=== PATIENT | male | born 1960 | race Caucasian/White ===

== ENCOUNTER 2017-11-13 01:00 | Emergency (ER) | END 2017-11-13 01:10 | disposition left against medical advice (07) | LOC: ER 01:00 | DX: Z53.21 Procedure and treatment not carried out due to patient leaving prior to being seen by health care provider (principal) ==

== ENCOUNTER 2018-03-09 01:14 | Emergency (ER) | payer MEDICARE, MEDICAID ==
--- NOTE | 2018-03-09 01:56 | ER Document Report ---
ED General - General Chief Complaint: Head Injury with LOC Stated Complaint: FALL/HEAD LACERATION Time Seen by Provider: 03/09/18 01:36 Notes: Patient is a 57-year old male with a past history of coronary artery disease, has had four-vessel bypass in the past as well as multiple stent placements who presents after a mechanical trip and fall while walking up the steps. The patient is quite agitated, guarded on history taking. His at the bedside does state that he had been drinking tonight, but it looks like he tripped and fell up the stairs striking his head on the side of a wall. He did lose consciousness. Since that time he has been acting like his normal self per the patient's . He has not had any vomiting, focal weakness or numbness. No confusion. He does take clopidogrel. He does not regularly follow with a primary care physician. The patient does relate that he has been having episodes over the last 6-12 months where he "blacks out". He is unwilling to provide additional information stating that is not why he is here tonight and that he does not feel like he should be in the hospital at all. He is quite agitated with his will bring him here to the emergency department. TRAVEL OUTSIDE OF THE [place] IN LAST 30 DAYS: No - Related Data Allergies/Adverse Reactions: aspirin [From Percodan] Allergy (Verified 11/13/17 01:07) morphine Allergy (Verified 11/13/17 01:07) oxycodone [From Percodan] Allergy (Verified 11/13/17 01:07) Past Medical History - General Information source: Patient - Social History Smoking Status: Current Every Day Smoker Frequency of alcohol use: Heavy Drug Abuse: None Lives with: Parents Family History: Reviewed & Not Pertinent Review of Systems - Review of Systems Notes: Constitutional: Negative for fever. Eyes: Negative for visual changes. ENT: Negative for facial injury Cardiovascular: Negative for chest injury. Respiratory: Negative for shortness of breath. Gastrointestinal: Negative for abdominal injury. Genitourinary: Negative for genital injury Musculoskeletal: Negative for back injury. Skin: Positive for laceration/abrasions. Neurological: Positive for head injury. Physical Exam - Vital signs Vitals: Temp Pulse Resp BP Pulse Ox 97.6 F 77 22 H 95/66 L 93 03/09/18 01:21 03/09/18 01:21 03/09/18 01:21 03/09/18 01:21 03/09/18 01:21 Interpretation: Normal Notes: PHYSICAL EXAMINATION: GENERAL: Well-appearing, no acute distress. HEAD: Subcutaneous hematoma and abrasion over the left forehead EYES: Pupils equal round and reactive to light, extraocular movements intact, sclera anicteric, conjunctiva are normal. ENT: nares patent, no oral pharyngeal trauma. No hemotympanum, no Espino's sign , no raccoon eyes. NECK: No midline cervical spine tenderness. Patient able to move their head to 45 bilaterally without any discomfort. LUNGS: Breath sounds clear to auscultation bilaterally and equal. No wheezes rales or rhonchi. HEART: Regular rate and rhythm without murmurs. CHEST WALL: No ecchymosis over the chest wall. ABDOMEN: Soft, nontender, normoactive bowel sounds. No guarding, no rebound. No abdominal bruising EXTREMITIES: Normal range of motion, no pitting or edema. No long bone deformities. BACK: No midline spinal tenderness, step-offs, or deformities. NEUROLOGICAL: Face symmetric. Tongue protrudes midline. Extraocular motions intact. Pupils are 2 mm and equally reactive. Normal speech, normal gait. 5 out of 5 strength in both the distal and proximal upper and lower extremities bilaterally. Sensation is grossly intact throughout. PSYCH: Somewhat agitated, hostile affect. Redirectable. SKIN: Warm, Dry, normal turgor, abrasions as above Course - Re-evaluation Re-evalutation: 03/09/18 03:04 Presentation of head trauma in an otherwise well-appearing patient. Patient does have an abrasion and subcutaneous hematoma over the left forehead. No focal neurologic deficits on exam, no evidence of basilar skull fracture on exam without evidence of hemotympanum, raccoon eyes, or periauricular hematoma. No papilledema. Patient is however on clopidogrel and did also lose consciousness tonight when he hit his head. A CT of the head was therefore obtained which is noted to be normal without any evidence of acute intracranial bleed. The remainder of the trauma assessment is otherwise unremarkable. The patient has made a comment that he has had frequent episodes of "blacking out". The patient is a quite difficult individual, states "I leave medical facilities AMA all the time". Adamantly declines any further workup for anything other than his head trauma tonight. He was however agreeable to me providing referrals to a local primary care doctor and certified peer specialist. At this time will discharge with return precautions and follow-up recommendations. Verbal discharge instructions given a the bedside and opportunity for questions given. Medication warnings reviewed. Patient is in agreement with this plan and has verbalized understanding of return precautions and the need for primary care follow-up in the next 24-72 hours. - Vital Signs Vital signs: Temp Pulse Resp BP Pulse Ox 97.6 F 77 22 H 95/66 L 93 03/09/18 01:21 03/09/18 01:21 03/09/18 01:21 03/09/18 01:21 03/09/18 01:21 - Diagnostic Test Radiology reviewed: Image reviewed, Reports reviewed Radiology results interpreted by me: 03/09/18 03:05 CT head: No acute intracranial bleed or mass Discharge - Discharge Clinical Impression: Head trauma Qualifiers: Encounter type: initial encounter Qualified Code(s): S09.90XA - Unspecified injury of head, initial encounter Fall Qualifiers: Encounter type: initial encounter Qualified Code(s): W19.XXXA - Unspecified fall, initial encounter Condition: Good Disposition: HOME, SELF-CARE Additional Instructions: You have likely sustained a contusion (bruise) to your head. The CT scan of your head is normal. Symptoms to expect from a concussion include nausea, mild to moderate headache, difficulty concentrating or sleeping, and mild lightheadedness. These symptoms should improve over the next few days to weeks. Return to the emergency department or follow-up with your primary care doctor if your symptoms are not improving over this time. Signs of a more serious head injury include vomiting, severe headache, excessive sleepiness or confusion, and weakness or numbness in your face, arms or legs. Return immediately to the Emergency Department if you experience any of these more concerning symptoms. Rest, avoid strenuous physical or mental activity, and avoid activities that could potentially result in another head injury until all your symptoms from this head injury are completely resolved for at least 2-3 weeks. If you participate in sports, get cleared by your doctor or quality review trainer before returning to play. You may take ibuprofen or acetaminophen over the counter according to label instructions for mild headache or scalp soreness. As we discussed today, you need to follow-up with your primary care doctor and cardiology given your repeated episodes of loss of consciousness. You have declined a further workup for this tonight but I do strongly believe this workup should be completed particularly given your cardiac history. Referrals: CALVIN PLUNKETT MD [ACTIVE STAFF] - Follow up as needed USAMA SANCHEZ MD [ACTIVE STAFF] - Follow up as needed
[2018-03-09 02:24] VITALS: BP 114/74
--- NOTE | 2018-03-09 02:41 | RADIOLOGY REPORT (SQ) ---
CLINICAL HISTORY: fall, anticoagulated, head trauma COMPARISON: None. TECHNIQUE: CT HEAD WITHOUT IV CONTRAST on 03/09/2018 1:50 AM [employer] This exam was performed according to our departmental dose-optimization program, which includes automated exposure control, adjustment of the mA and/or kV according to patient size and/or use of iterative reconstruction technique. FINDINGS: There is no acute hemorrhage, mass effect or midline shift. There is posterior right frontal lobe encephalomalacia. There is no hydrocephalus. There is no significant volume loss for age. There is a left frontal scalp contusion. The calvarium is intact. Orbits and globes are unremarkable. The paranasal sinuses are clear. Mastoid air cells are clear. IMPRESSION: No acute intracranial findings.
== END 2018-03-09 03:13 | disposition home or self-care (01) ==
LOC: ER 01:14
DX: S09.90XA Unspecified injury of head, initial encounter (principal); W01.198A Fall on same level from slipping, tripping and stumbling with subsequent striking against other object, initial encounter; Z95.1 Presence of aortocoronary bypass graft; I25.10 Atherosclerotic heart disease of native coronary artery without angina pectoris; F17.200 Nicotine dependence, unspecified, uncomplicated; Z72.89 Other problems related to lifestyle
CPT/HCPCS: 70450; 99284

== ENCOUNTER 2018-06-27 11:33 | Emergency (ER) | payer MEDICARE, MEDICAID ==
--- NOTE | 2018-06-27 12:00 | ER Document Report ---
ED Medical Screen (RME) - General Chief Complaint: Head Injury without LOC Stated Complaint: HEAD INJURY TRAVEL OUTSIDE OF THE [place] IN LAST 30 DAYS: No - HPI Notes: 06/27/18 11:59 Patient said he passed out last night in the garage and fell hitting his head came in with left-sided aberration and hematoma on the left side of the head. He does not know why he passed out. Patient is complaining of headache. He denies any chest pain shortness of breath abdominal pain currently. - Related Data Allergies/Adverse Reactions: aspirin [From Percodan] Allergy (Verified 06/27/18 11:34) morphine Allergy (Verified 06/27/18 11:34) oxycodone [From Percodan] Allergy (Verified 06/27/18 11:34) Past Medical History - Social History Frequency of alcohol use: daily Drug Abuse: None Pulmonary Medical History: Reports: Hx COPD Renal/ Medical History: Denies: Hx Peritoneal Dialysis Physical Exam - Vital signs Vitals: Temp Pulse Resp BP Pulse Ox 98.6 F 92 19 143/89 H 97 06/27/18 11:39 06/27/18 11:39 06/27/18 11:39 06/27/18 11:39 06/27/18 11:39 Course - Vital Signs Vital signs: Temp Pulse Resp BP Pulse Ox 98.6 F 92 19 143/89 H 97 06/27/18 11:39 06/27/18 11:39 06/27/18 11:39 06/27/18 11:39 06/27/18 11:39
[2018-06-27 12:36] LABS: ABSOLUTE BASOPHILS # (AUTO) 0.1 10^3/uL (0.0-0.2); ABSOLUTE EOSINOPHILS # (AUTO) 0.3 10^3/uL (0.0-0.6); ABSOLUTE LYMPHOCYTES (AUTO) 3.3 10^3/uL (0.5-4.7); ABSOLUTE MONOCYTES (AUTO) 0.8 10^3/uL (0.1-1.4); ABSOLUTE NEUT (AUTO) 4.3 10^3/uL (1.7-8.2); BASOPHILS % (AUTO) 0.8 % (0-2); EOSINOPHILS % (AUTO) 3.3 % (0-6); LYMPHOCYTES % (AUTO) 37.8 % (13-45); MEAN CORPUSCULAR HGB CONC 34.8 g/dL (32.0-36.0); MEAN CORPUSCULAR VOLUME 92 fl (80-97); MONOCYTES % (AUTO) 9.1 % (3-13); PLATELET COUNT 303 10^3/uL (150-450); RED BLOOD COUNT 4.99 10^6/uL (4.35-5.55); RED CELL DISTRIBUTION WIDTH 14.2 % (11.5-14.0); TOTAL CELLS COUNTED % (AUTO) 100 %; WHITE BLOOD COUNT 8.8 10^3/uL (4.0-10.5)
[2018-06-27 12:41] LABS: INTERNATIONAL RATION (INR) 0.94
[2018-06-27 12:42] LABS: PARTIAL THROMBOPLASTIN TIME 30.3 SEC (23.5-35.8)
[2018-06-27 12:49] LABS: APPEARANCE,URINE CLEAR; BILIRUBIN,URINE NEGATIVE (NEGATIVE); COLOR,URINE STRAW; GLUCOSE, URINE NEGATIVE (NEGATIVE); KETONES,URINE NEGATIVE (NEGATIVE); LEUKOCYTE ESTERASE,URINE NEGATIVE (NEGATIVE); NITRITE,URINE NEGATIVE (NEGATIVE); PROTEIN,URINE NEGATIVE (NEGATIVE); URINE SPECIFIC GRAVITY 1.004; UROBILINOGEN,URINE NEGATIVE mg/dL (<2.0)
[2018-06-27 12:57] LABS: ALANINE AMINOTRANSFERASE 57 U/L (21-72); ALCOHOL 132 mg/dL (NONE DETECTED); ALKALINE PHOSPHATASE 82 U/L (38-126); ANION GAP 10 (5-19); ASPARTATE AMINO TRANSFERASE 67 U/L (17-59); BILIRUBIN,DIRECT 0.3 mg/dL (0.0-0.4); BILIRUBIN,TOTAL 0.7 mg/dL (0.2-1.3); BLOOD UREA NITROGEN 5 mg/dL (7-20); CALCIUM 9.7 mg/dL (8.4-10.2); CARBON DIOXIDE 28 mmol/L (22-30); CHLORIDE 98 mmol/L (98-107); CREATINE KINASE 146 U/L (55-170); GLUCOSE 82 mg/dL (75-110); POTASSIUM 5.2 mmol/L (3.6-5.0); SODIUM 135.8 mmol/L (137-145); TOTAL PROTEIN 8.2 g/dL (6.3-8.2)
--- NOTE | 2018-06-27 12:58 | RADIOLOGY REPORT (SQ) ---
EXAM DESCRIPTION: CT HEAD WITHOUT COMPLETED DATE/TIME: 06/27/2018 12:48 pm REASON FOR STUDY: Head injury, Syncope COMPARISON: 03/09/2018. TECHNIQUE: Axial images acquired through the brain without intravenous contrast. Images reviewed wi th bone, brain and subdural windows. Additional sagittal and coronal reconstructions were generated. Images stored on PACS. All CT scanners at this facility use dose modulation, iterative reconstruction, and/or weight based d osing when appropriate to reduce radiation dose to as low as reasonably achievable (ALARA). [facility]: Dose Right [facility]: CareDose [facility]: Dose Right [facility]: Teradose 4D [facility]: Amplifinity RADIATION DOSE: CT Rad equipment meets quality standard of care and radiation dose reduction techniq ues were employed. CTDIvol: 53.2 mGy. DLP: 1070 mGy-cm. mGy. LIMITATIONS: None. FINDINGS: VENTRICLES: Normal size and contour. CEREBRUM: No masses. No hemorrhage. No midline shift. No evidence for acute infarction. Normal gra y/white matter differentiation. Stable area of encephalomalacia in the right frontal lobe. No areas of low density in the white matter. CEREBELLUM: No masses. No hemorrhage. No alteration of density. No evidence for acute infarction. EXTRAAXIAL SPACES: No fluid collections. No masses. ORBITS AND GLOBE: No intra- or extraconal masses. Normal contour of globe without masses. CALVARIUM: No fracture. PARANASAL SINUSES: No fluid or mucosal thickening. SOFT TISSUES: Left frontal scalp hematoma. OTHER: No other significant finding. IMPRESSION: 1. LEFT FRONTAL SCALP HEMATOMA. NO UNDERLYING SKULL FRACTURE. 2. STABLE FOCAL AREA OF ENCEPHALOMALACIA IN THE RIGHT FRONTAL LOBE WHICH MAY BE RELATED TO OLD TRAUMA OR PRIOR INFARCT. NO ACUTE FINDINGS. EVIDENCE OF ACUTE STROKE: NO. COMMENT: Quality ID # [id number]: Final reports with documentation of one or more dose reduction techniques (e.g., Automated exposure control, adjustment of the mA and/or kV according to patient size, use of iterative reconstruction technique) TECHNICAL DOCUMENTATION: JOB ID: [id number] [employer]- All Rights Reserved Reading location - IP/workstation name: [email or web address]
[2018-06-27 13:06] LABS: URINE AMPHETAMINES SCREEN NEGATIVE; URINE BARBITURATES SCREEN NEGATIVE; URINE BENZODIAZEPINES SCREEN NEGATIVE; URINE COCAINE SCREEN NEGATIVE; URINE MARIJUANA (THC) SCREEN NEGATIVE; URINE METHADONE SCREEN NEGATIVE; URINE PHENCYCLIDINE SCREEN NEGATIVE
[2018-06-27 13:15] LABS: CREATINE KINASE MB 1.43 ng/mL (<4.55); TROPONIN I < 0.012 ng/mL
--- NOTE | 2018-06-27 13:19 | RADIOLOGY REPORT (SQ) ---
EXAM DESCRIPTION: CHEST SINGLE VIEW COMPLETED DATE/TIME: 06/27/2018 12:48 pm REASON FOR STUDY: Syncope COMPARISON: None. EXAM PARAMETERS: NUMBER OF VIEWS: One view. TECHNIQUE: Single frontal radiographic view of the chest acquired. RADIATION DOSE: NA LIMITATIONS: None. FINDINGS: LUNGS AND PLEURA: No opacities, masses or pneumothorax. No pleural effusion. MEDIASTINUM AND HILAR STRUCTURES: No masses. Contour normal. HEART AND VASCULAR STRUCTURES: Heart normal in size. Normal vasculature. BONES: No acute findings. HARDWARE: Sternotomy wires. Surgical clips. OTHER: No other significant finding. IMPRESSION: NO ACUTE RADIOGRAPHIC FINDING IN THE CHEST. TECHNICAL DOCUMENTATION: JOB ID: [id number] [employer]- All Rights Reserved Reading location - IP/workstation name: [email or web address]
--- NOTE | 2018-06-27 15:43 | ER Document Report ---
ED General - General Chief Complaint: Head Injury without LOC Stated Complaint: HEAD INJURY Time Seen by Provider: 06/27/18 15:04 Notes: Patient says he "blacked out" at about 11:40 PM last night while walking downstairs. That caused him to fall and hit his head on the garage floor. This is happened several times over the last couple of months. He thinks he has had about 4 or 5 episodes since last February. Most recent episode was a couple of months ago. He sustained a bruise to his left forehead. Was not able to sleep well last night and vomited once this morning. He has not had any chest pains, abdominal pains, shortness of breath or difficulty breathing, etc. Has not had any fever. Patient has had coronary bypass surgery as well as vascular surgery on the blood vessels going into his legs. TRAVEL OUTSIDE OF THE [place] IN LAST 30 DAYS: No - Related Data Allergies/Adverse Reactions: aspirin [From Percodan] Allergy (Verified 06/27/18 11:34) morphine Allergy (Verified 06/27/18 11:34) oxycodone [From Percodan] Allergy (Verified 06/27/18 11:34) Past Medical History - Social History Smoking Status: Current Every Day Smoker Frequency of alcohol use: daily Drug Abuse: None Family History: Reviewed & Not Pertinent Patient has suicidal ideation: No Patient has homicidal ideation: No Pulmonary Medical History: Reports: Hx COPD Review of Systems - Review of Systems Notes: REVIEW OF SYSTEMS: CONSTITUTIONAL : Denies fever. EENT: Denies eye, ear, nose or mouth or throat pain or other symptoms. CARDIOVASCULAR: Denies chest pain. RESPIRATORY: Denies cough, chest congestion, or shortness of breath. GASTROINTESTINAL: Denies abdominal pain or nausea, vomiting, or diarrhea. GENITOURINARY: Denies difficulty or painful urinating, urinary frequency, blood in urine. MUSCULOSKELETAL: Denies back or neck pain. Denies joint pain or swelling. SKIN: Denies rash or skin lesions. NEUROLOGICAL: Denies LOC or altered mental status. Denies headache. Denies sensory loss or motor deficits. ALL OTHER SYSTEMS REVIEWED AND NEGATIVE. Physical Exam - Vital signs Vitals: Temp Pulse Resp BP Pulse Ox 98.6 F 92 19 143/89 H 97 06/27/18 11:39 06/27/18 11:39 06/27/18 11:39 06/27/18 11:39 06/27/18 11:39 Interpretation: Normal Notes: PHYSICAL EXAMINATION: GENERAL: Well-appearing, in no acute distress. HEAD: Hematoma in the left upper forehead with some adjacent tissue bruising towards the eye. EYES: Pupils equal round and reactive to light, extraocular movements intact. ENT: oropharynx clear without exudates. Moist mucous membranes. NECK: Normal range of motion, supple. LUNGS: Breath sounds clear and equal bilaterally. No rib tenderness. HEART: Regular rate and rhythm without murmurs. ABDOMEN: Soft, nontender. No guarding or rebound. No masses. BACK: No tenderness throughout entire back. EXTREMITIES: Normal range of motion without pain. NEUROLOGICAL: Normal speech, normal gait. Normal sensory, motor, and reflex exams. Awake, alert, and oriented x3. Cranial nerves normal. PSYCH: Normal mood, normal affect. SKIN: Warm, dry, no rashes. Course - Re-evaluation Re-evalutation: 06/27/18 18:37 Discussed patient's results with him and his . Patient gave me permission to discuss all of his results with her present in the room. Patient's labs were all essentially unremarkable except for his blood alcohol of 132. I pointed out to him that is about equivalent almost 14 beers or drinks or glasses of wine. And that is after he had already had more than that in his system before getting here and having his blood drawn. Patient says that he been drinking and said he does not think he has a problem with it, but he does drink, heavily at times. He does not recall any association of the previous falls that he has had with alcohol ingestion. - Vital Signs Vital signs: Temp Pulse Resp BP Pulse Ox 97.8 F 92 16 133/87 H 95 06/27/18 15:58 06/27/18 11:39 06/27/18 15:27 06/27/18 15:27 06/27/18 15:27 - Laboratory Result Diagrams: 06/27/18 12:13 06/27/18 12:13 Laboratory results interpreted by me: 06/27/18 06/27/18 12:13 12:13 RDW 14.2 H Sodium 135.8 L Potassium 5.2 H BUN 5 L AST 67 H - Diagnostic Test Radiology reviewed: Image reviewed, Reports reviewed - CT scan of the brain is normal. - EKG Interpretation by Me EKG shows normal: Sinus rhythm Rate: Normal Rhythm: NSR Additional EKG results interpreted by me: 06/27/18 18:37 EKG shows low voltage but otherwise unremarkable. Discharge - Discharge Clinical Impression: Fall, Head injury, Traumatic hematoma of forehead, Alcohol intoxication Condition: Stable Disposition: HOME, SELF-CARE Additional Instructions: HEAD INJURY PRECAUTIONS: At this point, there is no evidence that your head injury is serious. Observation is necessary, however. Take only clear liquids for the first few hours, unless told otherwise by the doctor. If no pain medication was prescribed, you may take acetaminophen according to the directions on the bottle. Do not take any medication that may alter your level of alertness (unless you've discussed it with the doctor first). Limit activity for the first 24 hours. Bed rest is best. During the first 24 hours, check to see approximately every two to three hours that the patient is easily arousable, responds normally, and can perform common tasks such as walking without difficulty. Contact your doctor or go to the hospital if any of the following things occur: Persistent vomiting, difficulty in arousing the patient, worsening or continued headache, or failure to improve as expected. Head injuries can cause symptoms that persist for a few days or even a few weeks. CONTUSION: Your injury has resulted in a contusion -- a crushing of the deep tissues. No injury to important structures was detected during the physician's exam. Contusions vary in the amount of pain they cause, and in the length of time required for healing. Typically, the area will become bruised, and will remain painful to touch for two or three weeks. However, most patients are back to working and playing within a few days. After the initial period of rest and cold-packs, your symptoms (together with the doctor's recommendations) will determine how rapidly you can get back to full activity. Usually this means "do what feels okay, but don't do things that hurt." If re-examination was recommended, it's important to follow up as instructed. Call the doctor or return any time if pain increases, if swelling becomes severe, if you develop numbness or weakness in an injured extremity, or if any other alarming symptoms occur. USE OF TYLENOL (ACETAMINOPHEN): Acetaminophen may be taken for pain relief or fever control. It's much safer than aspirin, offering a wider range of "safe" dosages. It is safe during . Some brand names are Tylenol, Panadol, Datril, Anacin 3, Tempra, and Liquiprin. Acetaminophen can be repeated every four hours. The following are maximum recommended dosages: WEIGHT Dose Drops Elixir Chewable(80mg) (LBS.) drprs=droppers tsp=teaspoon 6 40 mg 0.4 ml (1/2) 6-11 80 mg 0.8 ml (full) tsp 1 tab 12-16 120 mg 1 1/2 drprs 3/4 tsp 1 1/2 tabs 17-23 160 mg 2 drprs 1 tsp 2 tabs 24-30 240 mg 3 drprs 1 1/2 tsp 3 tabs 30-35 320 mg 2 tsp 4 tabs 36-41 360 mg 2 1/4 tsp 4 1/2 tabs 42-47 400 mg 2 1/2 tsp 5 tabs 48-53 480 mg 3 tsp 6 tabs 54-59 520 mg 3 1/4 tsp 6 1/2 tabs 60-64 560 mg 3 1/2 tsp 7 tabs 65-70 600 mg 3 3/4 tsp 7 1/2 tabs 71-76 640 mg 4 tsp 8 tabs 77-82 720 mg 4 1/2 tsp 9 tabs 83-88 800 mg 5 tsp 10 tabs >89 pounds or adults 650 mg to 900 mg Acetaminophen can be repeated every four hours. Maximum dose not to exceed 4000 mg a day. These maximum recommended dosages are slightly higher than the dosages written on the product container, but these dosages are very safe and below the toxic dosage for acetaminophen. Your alcohol level was 132 which is approximately equivalent to 7 beers or 7 drinks or 7 glasses of wine, etc. For your information, legally drunk in the [facility] while driving a car is an alcohol level of 80. NORMAL EXAM AND WORKUP: At this time, with the exception of your elevated blood alcohol level, your examination and workup show no significant abnormality. No significant abnormal physical findings were noted. All laboratory, EKG, and imaging (x-ray, CT scans, ultrasound) studies that were ordered show no significant abnormality. Although your examination and all studies that were ordered showed no significant abnormal finding, there are no examinations and no studies that are 100% accurate. There is always the possibility that some abnormality could exist and not be detected with physical examination or within the limits and capabilities of laboratory and other studies. You should return or follow up as you were instructed on your visit today for further evaluation if your symptoms do not resolve. FOLLOW-UP CARE: If you have been referred to a physician for follow-up care, call the physicians office for an appointment as you were instructed or within the next two days. If you experience worsening or a significant change in your symptoms, notify the physician immediately or return to the Emergency Department at any time for re-evaluation.
[2018-06-27 15:51] VITALS: BP 133/87
--- NOTE | 2018-06-27 19:29 | EKG REPORT ---
SEVERITY:- ABNORMAL ECG - SINUS RHYTHM PROBABLE RIGHT VENTRICULAR HYPERTROPHY CONSIDER LAFB OR INFERIOR INFARCT : Confirmed by: Dionte Alarcon MD 27-Jun-2018 19:28:39
== END 2018-06-27 15:59 | disposition home or self-care (01) ==
LOC: ER 11:33
DX: S00.83XA Contusion of other part of head, initial encounter (principal); W10.9XXA Fall (on) (from) unspecified stairs and steps, initial encounter; F10.129 Alcohol abuse with intoxication, unspecified; Y90.6 Blood alcohol level of 120-199 mg/100 ml; J44.9 Chronic obstructive pulmonary disease, unspecified; F17.200 Nicotine dependence, unspecified, uncomplicated; Z88.6 Allergy status to analgesic agent; Z88.5 Allergy status to narcotic agent; Z95.1 Presence of aortocoronary bypass graft
CPT/HCPCS: 36415; 70450; 71045; 80053; 80307; 81001; 82550; 82553; 84484; 85025; 85610; 85730; 93005; 93010; 99284